=== PATIENT | female | born 1995 | race African-American/Black ===

== ENCOUNTER 2016-09-17 06:35 | Observation (INO) | payer OTHER, BC ==
[2016-09-17] MEDS ORDERED: PREN-96 PO (07:16)
[2016-09-17] MEDS ORDERED: FERR-7 PO (07:16)
== END 2016-09-17 08:30 | disposition home or self-care (01) | DRG 781 ==
LOC: LDRP 06:35
PROVIDERS: ADMIT Specialist; ATTEND Specialist
DX: O62.9 Abnormality of forces of labor, unspecified (principal); O26.893 Other specified pregnancy related conditions, third trimester; Z3A.39 39 weeks gestation of pregnancy; M54.5 Low back pain
CPT/HCPCS: 59025; 81002; G0378

== ENCOUNTER 2016-09-17 14:25 | Inpatient (IN) | payer OTHER, BC ==
[~2016-09-17] VITALS: Ht 152.4 cm; Wt 78.5 kg
[~2016-09-17 14:25] MED LIST: FERR-7 PO; PREN-96 PO
[2016-09-17] MEDS: LACTATED RINGER'S 1,000 ML IV SCH ×2 (14:46→22:46)
[2016-09-17] MEDS ORDERED: LACT. RINGERS/OXYTOCIN 20UNITS 1,000 ML IV SCH (14:46)
[2016-09-17] MEDS ORDERED: ePHEDrine SULFATE 50 MG/ML AMP IV ONE (15:00)
[2016-09-17] MEDS ORDERED: PHISODERM TOP SOLN 240ML BTL TOP PRN (15:00)
[2016-09-17] MEDS ORDERED: CARBOPROST TROMETHAMINE 250 MCG/1ML VIAL IM PRN (15:00)
[2016-09-17] MEDS ORDERED: NALBUPHINE HCL 10 MG/1ml INJECTION IV PRN (15:00)
[2016-09-17] MEDS ORDERED: fentaNYL W ROPIVACAINE 150 ML EPI SCH (15:00)
[2016-09-17] MEDS ORDERED: LIDOCAINE HCL 2 %PF INJ 10ML AMP IJ ONE (15:00)
[2016-09-17] MEDS ORDERED: NALOXONE HCL 0.4 MG/ML VIAL IV ONE (15:00)
[2016-09-17] MEDS ORDERED: WITCH HAZEL-GLYCERIN PAD TOP PRN (15:00)
[2016-09-17] MEDS ORDERED: DERMOPLAST 60ML BOTTLE TOP PRN (15:00)
[2016-09-17] MEDS ORDERED: LIDOCAINE 2%HCL (LOCAL ANESTH.) INJ 20ML MDV IJ ONE (15:00)
[2016-09-17] MEDS ORDERED: fentaNYL CITRATE 100 MCG/2 ML VL IV ONE (15:00)
[2016-09-17] MEDS ORDERED: METHYLERGONOVINE MALEATE 0.2 MG/ML AMP IM PRN (15:00)
[2016-09-17 15:40] LABS: Basophils # (auto) 0 uL; Basophils % (auto) 0.2 % (0.0-2.0); CONDITION Y; DEFINITIVE SEE PRINTOUT; Eosinophils # (auto) 0 uL; Eosinophils % (auto) 0.3 % (0.0-7.0); Hemoglobin 11.1 g/dL (12.2-16.2); Lymphocytes # (auto) 0.8 uL; Lymphocytes % (auto) 12.2 % (10.0-50.0); Mean Corpuscular Hemoglobin 25.2 pg (28.0-32.0); Mean Corpuscular Hgb Conc. 32.6 g/dL (32.0-36.0); Mean Corpuscular Volume 77.4 fL (80.0-100.0); Mean Platelet Volume 8.6 fL (7.4-10.4); Monocytes # (auto) 0.4 uL; Monocytes % (auto) 5.5 % (0.0-12.0); Neutrophils # (auto) 5.5 uL; Neutrophils % (auto) 81.8 % (37.0-80.0); Platelet Count (auto) 261 10^3/uL (140-450); Red Cell Distribution Width 15.1 % (11.6-16.0); White Blood Cell 6.7 10^3/uL (4.4-10.8)
[2016-09-17 16:03] LABS: INR 0.88 (0.9-1.15); Partial Thromboplastin Time 26.4 sec (22.64-33.71); Prothrombin Time 9.6 sec (9.37-12.3)
[2016-09-17 17:50] LABS: Hypochromia Slight; Platelet Estimate Adequate
[2016-09-17] MEDS ORDERED: ACETAMINOPHEN 325 MG TAB PO PRN (19:15)
[2016-09-17] MEDS: IBUPROFEN 600 MG TAB PO PRN (20:11)
[2016-09-18 04:00] VITALS: BP 128/74
[2016-09-18] MEDS: IBUPROFEN 600 MG TAB PO PRN ×3 (04:12→17:51)
[2016-09-18] MEDS: LACTATED RINGER'S 1,000 ML IV SCH ×2 (06:46→14:46)
[2016-09-18 08:00] VITALS: BP 132/80
[2016-09-18] MEDS: DOCUSATE CALCIUM 240 MG CAP PO SCH (10:00)
[2016-09-18 11:40] VITALS: BP 116/67
[2016-09-18 15:45] VITALS: BP 112/78
[2016-09-18 19:10] VITALS: BP 122/83
[2016-09-19 00:28] VITALS: BP 110/62
[2016-09-19 03:20] VITALS: BP 124/80
[2016-09-19] MEDS: IBUPROFEN 600 MG TAB PO PRN (03:24)
[2016-09-19 07:00] VITALS: BP 119/77
[2016-09-19] MEDS: DOCUSATE CALCIUM 240 MG CAP PO SCH (10:15)
== END 2016-09-19 13:06 | disposition home or self-care (01) | DRG 775 ==
LOC: OBSVTOIN 14:25 → LDRP 14:25
PROVIDERS: ADMIT Specialist; ATTEND Specialist
PROC: 10E0XZZ Delivery of Products of Conception, External Approach (ICD-10-PCS; principal; 2016-09-17)
PROC: 0W8NXZZ Division of Female Perineum, External Approach (ICD-10-PCS; 2016-09-17)
DX: O77.0 Labor and delivery complicated by meconium in amniotic fluid (principal); O99.52 Diseases of the respiratory system complicating childbirth; J45.909 Unspecified asthma, uncomplicated; O61.9 Failed induction of labor, unspecified; Z37.0 Single live birth; Z3A.39 39 weeks gestation of pregnancy
CPT/HCPCS: 36415; 51702; 59025; 59409; 81002; 85025; 85610; 85730; 86850; 86900; 86901; 96361; 96366; 96374; J2590; J3010

== ENCOUNTER → 2016-11-11 | Outpatient (CLI) | payer BC, OTHER | END | disposition home or self-care (01) | LOC: LAB 10:00 | PROVIDERS: ATTEND Obstetrics & Gynecology | DX: R87.612 Low grade squamous intraepithelial lesion on cytologic smear of cervix (LGSIL) (principal) ==

== ENCOUNTER 2018-07-26 13:25 | Emergency (ER) | payer BC, OTHER ==
[~2018-07-26] VITALS: Ht 175.3 cm; Wt 59.0 kg
[2018-07-26 13:58] LABS: Basophils # (auto) 0 uL; Basophils % (auto) 0.7 % (0.0-2.0); Eosinophils # (auto) 0.2 uL; Neutrophils # (auto) 2.8 uL; White Blood Cell 4.3 10^3/uL (4.4-10.8)
[2018-07-26 13:59] LABS: Eosinophils % (auto) 3.6 % (0.0-7.0); Hematocrit 37.8 % (36.0-46.0); Hemoglobin 12.1 g/dL (12.2-16.2); Lymphocytes # (auto) 0.9 uL; Lymphocytes % (auto) 21.3 % (10.0-50.0); Mean Corpuscular Hemoglobin 23.9 pg (28.0-32.0); Mean Corpuscular Hgb Conc. 32.1 g/dL (32.0-36.0); Mean Corpuscular Volume 74.6 fL (80.0-100.0); Monocytes # (auto) 0.4 uL; Monocytes % (auto) 8.3 % (0.0-12.0); Neutrophils % (auto) 66.1 % (37.0-80.0); Nucleated Red Blood Cells % 0.2 %; Platelet Count (auto) 265 10^3/uL (140-450); Red Blood Cells 5.07 10^6/uL (4.0-5.20); Red Cell Distribution Width 15.8 % (11.8-14.3)
[2018-07-26] MEDS ORDERED: KETOROLAC TROMETH 60MG/2ML VIAL IM ONE (14:00)
[2018-07-26 14:13] LABS: Albumin 3.8 g/dL (3.4-5.0); Anion Gap 7 (5-15); Blood Urea Nitrogen 5 mg/dL (7-18); Carbon Dioxide 23 mmol/L (21-32); Chloride 109 mmol/L (98-107); Glucose 85 mg/dL (74-106); Potassium 3.7 mmol/L (3.5-5.1); Sodium 139 mmol/L (136-145)
[2018-07-26 14:15] LABS: GFR African American 109 mL/min; GFR Non-African American 90 mL/min
[2018-07-26 14:18] LABS: Alanine Aminotransferase 24 U/L (13-56); Alkaline Phosphatase 53 U/L (45-117); Aspartate Aminotransferase 25 U/L (15-37); Bilirubin, Total 0.3 mg/dL (0.2-1.0); Total Protein 7.2 g/dL (6.4-8.2)
[2018-07-26 15:04] VITALS: BP 126/81
[2018-07-26 15:19] LABS: Urine Pregnacy Test Negative (Negative)
[2018-07-26 15:28] LABS: Urine Bacteria NONE SEEN /hpf (None Seen); Urine Blood Negative /uL (Negative); Urine Mucus FEW (None Seen); Urine Specific Gravity 1.022 (1.001-1.035); Urine WBC 2 /hpf (0 - 5)
[2018-07-26 15:36] LABS: Alcohol, Urine < 3.0 mg/dL (0-5); Amphetamine Screen, Urine NEGATIVE (NEGATIVE); Barbiturate Scree,Urine NEGATIVE (NEGATIVE); Benzodiazephine Screen, Urine NEGATIVE (NEGATIVE); Cannabinoid Screen, Urine POSITIVE (NEGATIVE); Cocaine Screen, Urine NEGATIVE (NEGATIVE); Opiate Scree,Urine NEGATIVE (NEGATIVE); Phencyclidine Screen, Urine NEGATIVE (NEGATIVE)
== END 2018-07-26 16:10 | disposition home or self-care (01) ==
LOC: ER 13:29
DX: N94.6 Dysmenorrhea, unspecified (principal); F12.10 Cannabis abuse, uncomplicated; J45.909 Unspecified asthma, uncomplicated
CPT/HCPCS: 36415; 80053; 80307; 81001; 81025; 84702; 85025; 93005; 96372; 99284; J1885

== ENCOUNTER 2019-01-05 14:54 | Emergency (ER) | payer OTHER ==
[~2019-01-05] VITALS: Ht 175.3 cm; Wt 59.0 kg
[2019-01-05 20:23] LABS: Urine Bacteria NONE SEEN /hpf (None Seen); Urine Blood Negative /uL (Negative); Urine Mucus FEW (None Seen); Urine Specific Gravity 1.026 (1.001-1.035); Urine WBC 5 /hpf (0 - 5)
[2019-01-05 21:23] LABS: Basophils # (auto) 0 uL; Basophils % (auto) 0.4 % (0.0-2.0); Eosinophils # (auto) 0 uL; Eosinophils % (auto) 0.3 % (0.0-7.0); Hematocrit 38.9 % (36.0-46.0); Hemoglobin 12.5 g/dL (12.2-16.2); Lymphocytes # (auto) 0.2 uL; Monocytes # (auto) 0.2 uL; Monocytes % (auto) 3.7 % (0.0-12.0)
[2019-01-05 21:24] LABS: Lymphocytes % (auto) 3.8 % (10.0-50.0); Mean Corpuscular Hemoglobin 24.2 pg (28.0-32.0); Mean Corpuscular Hgb Conc. 32.1 g/dL (32.0-36.0); Mean Corpuscular Volume 75.5 fL (80.0-100.0); Neutrophils # (auto) 5.8 uL; Neutrophils % (auto) 91.8 % (37.0-80.0); Platelet Count (auto) 285 10^3/uL (140-450); Red Blood Cells 5.15 10^6/uL (4.0-5.20); Red Cell Distribution Width 14.9 % (11.8-14.3); White Blood Cell 6.4 10^3/uL (4.4-10.8)
[2019-01-05 21:29] LABS: Albumin 4.2 g/dL (3.4-5.0); Calcium 9.3 mg/dL (8.5-10.1); Potassium 4.3 mmol/L (3.5-5.1)
[2019-01-05 21:32] LABS: BUN/Creatinine Ratio 12.2; Bilirubin, Total 0.9 mg/dL (0.2-1.0); Total Protein 7.4 g/dL (6.4-8.2)
[2019-01-05] MEDS ORDERED: SODIUM CHLORIDE 0.9% 1,000 ML IV ONE (21:45)
[2019-01-05] MEDS ORDERED: MORPHINE SULF INJ 2 MG/ML SYRINGE 1ML IV ONE (21:45)
[2019-01-05] MEDS ORDERED: ONDANSETRON HCL 4 MG/2 ML VIAL IV ONE (21:45)
[2019-01-06] VITALS: BP 115/69
== END 2019-01-06 01:07 | disposition home or self-care (01) ==
LOC: ER 14:54
DX: K52.9 Noninfective gastroenteritis and colitis, unspecified (principal); F12.10 Cannabis abuse, uncomplicated; J45.909 Unspecified asthma, uncomplicated
CPT/HCPCS: 36415; 74176; 80053; 81001; 83690; 85025; 96361; 96374; 96375; 99284; J2270; J2405; J7030

== ENCOUNTER 2020-10-28 01:44 | Inpatient (IN) | payer OTHER ==
[~2020-10-28] VITALS: Ht 175.3 cm; Wt 68.0 kg
[2020-10-28 03:16] LABS: Basophils # (auto) 0.1 10 ^3/uL (0-0.2); Eosinophils # (auto) 0.1 10 ^3/uL (0-0.8); Hematocrit 29.5 % (36.0-46.0); Hemoglobin 9.6 g/dL (12.2-16.2); Mean Corpuscular Hemoglobin 24.4 pg (28.0-32.0); Red Blood Cells 3.93 10^6/uL (4.0-5.20)
[2020-10-28 03:18] LABS: Basophils % (auto) 0.6 % (0.0-2.0); Eosinophils % (auto) 0.9 % (0.0-7.0); Lymphocytes # (auto) 2.3 10 ^3/uL (0.4-5.4); Lymphocytes % (auto) 18.8 % (10.0-50.0); Mean Corpuscular Hgb Conc. 32.4 g/dL (32.0-36.0); Mean Corpuscular Volume 75.2 fL (80.0-100.0); Monocytes # (auto) 1.1 10 ^3/uL (0-1.3); Monocytes % (auto) 9.3 % (0.0-12.0); Neutrophils # (auto) 8.5 10 ^3/uL (1.6-8.6); Neutrophils % (auto) 70.4 % (37.0-80.0); Red Cell Distribution Width 14.8 % (11.8-14.3)
[2020-10-28 03:33] LABS: INR 0.93 (0.9-1.15)
[2020-10-28 03:35] LABS: Albumin 2.7 g/dL (3.4-5.0); BUN/Creatinine Ratio 8.7; Calcium 8.5 mg/dL (8.5-10.1)
[2020-10-28 03:36] LABS: Urine Bacteria FEW /hpf (None Seen); Urine Blood 2+ /uL (Negative); Urine Specific Gravity 1.011 (1.001-1.035); Urine WBC 25 /hpf (0 - 5)
[2020-10-28 03:37] LABS: Bilirubin, Total 0.2 mg/dL (0.2-1.0); Total Protein 6.1 g/dL (6.4-8.2)
[2020-10-28 03:45] LABS: Alcohol, Urine < 3.0 mg/dL (0-10); Amphetamine Screen, Urine NEGATIVE (NEGATIVE); Barbiturate Scree,Urine NEGATIVE (NEGATIVE); Benzodiazephine Screen, Urine NEGATIVE (NEGATIVE); Cannabinoid Screen, Urine POSITIVE (NEGATIVE); Cocaine Screen, Urine NEGATIVE (NEGATIVE); Opiate Scree,Urine NEGATIVE (NEGATIVE); Phencyclidine Screen, Urine NEGATIVE (NEGATIVE)
[2020-10-28] MEDS ORDERED: DERMOPLAST 60ML BOTTLE TOP PRN (03:45)
[2020-10-28] MEDS ORDERED: PENICILLIN G POT 5MIL/D5 50ML 50 ML IV ONE (03:45)
[2020-10-28] MEDS ORDERED: WITCH HAZEL-GLYCERIN PAD TOP PRN (03:45)
[2020-10-28] MEDS ORDERED: LIDOCAINE 2%HCL (LOCAL ANESTH.) INJ 20ML MDV IJ PRN (03:45)
[2020-10-28] MEDS ORDERED: LACTATED RINGER'S 1,000 ML IV SCH (03:45)
[2020-10-28] MEDS ORDERED: PROMETHAZINE HCL 25 MG/ML 1ML IV PRN (03:45)
[2020-10-28] MEDS ORDERED: PHISODERM TOP SOLN 240ML BTL TOP PRN (03:45)
[2020-10-28] MEDS ORDERED: BUTORPHANOL TARTRATE 2 MG/1 ML VIAL IV PRN ×2 (03:45)
[2020-10-28] MEDS ORDERED: LACT. RINGERS/OXYTOCIN 20UNITS 500 ML IV ONE ×2 (06:00)
[2020-10-28] MEDS ORDERED: diphenhdrAMINE HCL 50 MG/1 ML VL ONE (06:04)
[2020-10-28] MEDS ORDERED: diphenhdrAMINE HCL 50 MG/1 ML VL IV ONE (06:15)
[2020-10-28] MEDS ORDERED: PENICILLIN G POTASSIUM 2,500,000 UNITS in D5W 5% 50 ML IV SCH (07:45)
[2020-10-28] MEDS ORDERED: ACETAMINOPHEN 325 MG TAB PO PRN (08:15)
[2020-10-28] MEDS: IBUPROFEN 600 MG TAB PO PRN ×3 (09:25→19:02)
[2020-10-28 11:31] VITALS: BP 116/57
[2020-10-28 15:30] VITALS: BP 113/65
[2020-10-28 19:15] VITALS: BP 100/64
[2020-10-28 23:00] VITALS: BP 108/59
[2020-10-29] MEDS: IBUPROFEN 600 MG TAB PO PRN ×2 (02:14→08:20)
[2020-10-29 03:08] VITALS: BP 110/61
[2020-10-29 05:06] LABS: Rubella Antibodies, IgG <0.90 index (Immune >0.99)
[2020-10-29 06:06] LABS: RPR Non Reactive (Non Reactive)
[2020-10-29 07:00] VITALS: BP 117/70
[2020-10-29 11:00] VITALS: BP 118/72
[2020-10-29 15:00] VITALS: BP 120/70
== END 2020-10-29 18:25 | disposition home or self-care (01) | DRG 807 ==
LOC: LDRP 01:44 → OBSVTOIN 03:30 → LDRP 07:00
PROVIDERS: ADMIT Obstetrics & Gynecology; ATTEND Obstetrics & Gynecology
PROC: 10E0XZZ Delivery of Products of Conception, External Approach (ICD-10-PCS; principal; 2020-10-28)
PROC: 0KQM0ZZ Repair Perineum Muscle, Open Approach (ICD-10-PCS; 2020-10-28)
PROC: 10907ZC Drainage of Amniotic Fluid, Therapeutic from Products of Conception, Via Natural or Artificial Opening (ICD-10-PCS; 2020-10-28)
DX: O99.52 Diseases of the respiratory system complicating childbirth (principal); Z37.0 Single live birth; Z20.822 Contact with and (suspected) exposure to COVID-19; J45.909 Unspecified asthma, uncomplicated; O70.1 Second degree perineal laceration during delivery; Z82.5 Family history of asthma and other chronic lower respiratory diseases
CPT/HCPCS: 36415; 59025; 59409; 76815; 80053; 80307; 81001; 81002; 85025; 85610; 85730; 86592; 86703; 86762; 86850; 86900; 86901; 87340; 87426; 94760; 96360; 96361; 96374; G0378; J2540; J2590; J7060